=== PATIENT | female | born 1955 | race Caucasian/White ===

== ENCOUNTER 2017-12-14 08:37 | Outpatient (CLI) | payer OTHER | END 2017-12-14 08:38 | disposition home or self-care (01) | LOC: BICMAMMO 08:37 | PROVIDERS: ATTEND Family Medicine | DX: Z12.31 Encounter for screening mammogram for malignant neoplasm of breast (principal); Z13.820 Encounter for screening for osteoporosis; M85.89 Other specified disorders of bone density and structure, multiple sites | CPT/HCPCS: 77063; 77067; 77080 ==

== ENCOUNTER 2018-12-24 10:54 | Outpatient (CLI) | payer OTHER ==
--- NOTE | 2018-12-24 11:56 | MMO ---
Bilateral MAMMO Bilat Screen [facility]. CLINICAL HISTORY: Patient is 63 years old and is seen for screening. The patient has no family history of breast cancer. The patient has no personal history of cancer. VIEWS: The views performed were: bilateral craniocaudal with tomosynthesis and bilateral mediolateral oblique with tomosynthesis. FILMS COMPARED: The present examination has been compared to prior imaging studies performed at [facility] on 11/27/2014, 12/10/2015, 12/08/2016 and 12/14/2017. MAMMOGRAM FINDINGS: The breasts are heterogeneously dense, which could obscure a lesion on mammography. There are no suspicious masses, suspicious calcifications, or new areas of architectural distortion. IMPRESSION: THERE IS NO MAMMOGRAPHIC EVIDENCE OF MALIGNANCY. A ROUTINE FOLLOW-UP MAMMOGRAM IN 1 YEAR IS RECOMMENDED. THE RESULTS OF THIS EXAM WERE SENT TO THE PATIENT. ACR BI-RADS Category 1 - Negative MAMMOGRAPHY NOTE: 1. A negative mammogram report should not delay a biopsy if a dominant of clinically suspicious mass is present. 2. Approximately 10% to 15% of breast cancers are not detected by mammography. 3. Adenosis and dense breasts may obscure an underlying neoplasm.
== END 2018-12-24 10:55 | disposition home or self-care (01) ==
LOC: BICMAMMO 10:54
PROVIDERS: ATTEND Family Medicine
DX: Z12.31 Encounter for screening mammogram for malignant neoplasm of breast (principal)
CPT/HCPCS: 77063; 77067

== ENCOUNTER 2019-12-25 09:11 | Outpatient (CLI) | payer BC ==
--- NOTE | 2019-12-25 09:42 | BD ---
EXAM: DEXA bone density examination HISTORY: 64-year-old postmenopausal female for screening COMPARISON: None FINDINGS: L1--bone mineral density 0.825 g/sq cm; T score -1.5 L2--bone mineral density 0.899 g/sq cm; T score -1.2 L3--bone mineral density 0.873 g/sq cm; T score -1.9 L4--bone mineral density 0.796 g/sq cm; T score -2.4 Total L1-L4--bone mineral density 0.846 g/sq cm; T score -1.8 Left femoral neck--bone mineral density0.730; T score -1.1 Total proximal left femur--bone mineral density 0.805; T score -1.1 IMPRESSION: Osteopenia. This patient has a 10 year WHO fracture risk of a major osteoporotic fracture of 7.2% and of a hip fracture of 0.6%.
--- NOTE | 2019-12-25 09:55 | MMO ---
Bilateral MAMMO Bilat Screen [facility]. CLINICAL HISTORY: Patient is 64 years old and is seen for screening. The patient has no family history of breast cancer. The patient has no personal history of cancer. VIEWS: The views performed were: bilateral craniocaudal with tomosynthesis and bilateral mediolateral oblique with tomosynthesis. FILMS COMPARED: The present examination has been compared to prior imaging studies performed at [facility] on 12/10/2015, 12/08/2016, 12/14/2017 and 12/24/2018. This study has been interpreted with the assistance of computer-aided detection. MAMMOGRAM FINDINGS: The breasts are heterogeneously dense, which could obscure a lesion on mammography. There are stable benign appearing calcifications seen in both breasts. There are no suspicious masses, suspicious calcifications, or new areas of architectural distortion. IMPRESSION: THERE IS NO MAMMOGRAPHIC EVIDENCE OF MALIGNANCY. A ROUTINE FOLLOW-UP MAMMOGRAM IN 1 YEAR IS RECOMMENDED. THE RESULTS OF THIS EXAM WERE SENT TO THE PATIENT. ACR BI-RADS Category 2 - Benign finding MAMMOGRAPHY NOTE: 1. A negative mammogram report should not delay a biopsy if a dominant of clinically suspicious mass is present. 2. Approximately 10% to 15% of breast cancers are not detected by mammography. 3. Adenosis and dense breasts may obscure an underlying neoplasm. Reported by: NASIM ZAVALA MD Electonically Signed: [id number]
== END 2019-12-25 09:12 | disposition home or self-care (01) ==
LOC: BICMAMMO 09:11
PROVIDERS: ATTEND Family Medicine
DX: Z12.31 Encounter for screening mammogram for malignant neoplasm of breast (principal); M85.89 Other specified disorders of bone density and structure, multiple sites
CPT/HCPCS: 77063; 77067; 77080

== ENCOUNTER 2021-01-11 10:06 | Outpatient (CLI) | payer BC | END 2021-01-11 10:07 | disposition home or self-care (01) | LOC: BICMAMMO 10:06 | PROVIDERS: ATTEND Family Medicine | DX: Z12.31 Encounter for screening mammogram for malignant neoplasm of breast (principal) | CPT/HCPCS: 77063; 77067 ==

== ENCOUNTER 2022-02-21 08:37 | Outpatient (CLI) | payer BC, MEDICARE, OTHER | END 2022-02-21 08:38 | disposition home or self-care (01) | LOC: BICMAMMO 08:37 | PROVIDERS: ATTEND Family Medicine | DX: Z12.31 Encounter for screening mammogram for malignant neoplasm of breast (principal); Z13.820 Encounter for screening for osteoporosis; M85.89 Other specified disorders of bone density and structure, multiple sites | CPT/HCPCS: 77063; 77067; 77080 ==

== ENCOUNTER 2023-04-06 08:54 | Outpatient (CLI) | payer MEDICARE | END 2023-04-06 08:55 | disposition home or self-care (01) | LOC: BICMAMMO 08:54 | PROVIDERS: ATTEND Family Medicine | DX: Z12.31 Encounter for screening mammogram for malignant neoplasm of breast (principal) | CPT/HCPCS: 77063; 77067 ==

== ENCOUNTER 2024-04-24 08:42 | Outpatient (CLI) | payer MEDICARE | END 2024-04-24 08:43 | disposition home or self-care (01) | LOC: BICMAMMO 08:42 | PROVIDERS: ATTEND Family Medicine | DX: Z12.31 Encounter for screening mammogram for malignant neoplasm of breast (principal) | CPT/HCPCS: 77063; 77067 ==

== ENCOUNTER 2024-07-31 08:58 | Outpatient (CLI) | payer MEDICARE, OTHER | END 2024-07-31 08:59 | disposition home or self-care (01) | LOC: BICMAMMO 08:58 | PROVIDERS: ATTEND Family Medicine | DX: M85.89 Other specified disorders of bone density and structure, multiple sites (principal) | CPT/HCPCS: 77080 ==